=== PATIENT | male | born 1925 | race Caucasian/White ===

== ENCOUNTER 2016-11-24 13:58 | Outpatient (CLI) | END 2016-11-24 13:59 | disposition home or self-care (01) ==

== ENCOUNTER 2017-02-15 07:10 | Day surgery (SDC) | payer MEDICARE, OTHER ==
[2017-02-15] MEDS ORDERED: KETOROLAC 0.45% OPHTH DROPS OPTH ONE (07:36)
[2017-02-15] MEDS ORDERED: TROPICAMIDE 1% OPHTH 2 ML DROPS OPTH ONE (07:36)
[2017-02-15] MEDS ORDERED: CYCLOPENTOLATE 1% OPHTH DROPS 2 ML OPTH ONE (07:36)
[2017-02-15] MEDS ORDERED: LACTATED RINGERS 500 ML IV ONE (07:36)
[2017-02-15] MEDS ORDERED: MIDAZOLAM 2 MG/2 ML VIAL IVP ONE (08:50)
[2017-02-15] MEDS ORDERED: PROPARACAINE 0.5% OPHTH DROPS 15 ML OPTH ONE (09:03)
[2017-02-15] MEDS ORDERED: CHONDR SULF/HYALURONATE SYRINGE IO ONE (09:04)
[2017-02-15] MEDS ORDERED: TETRACAINE 0.5% OPHTH DROPS 4 ML OPTH ONE (09:04)
[2017-02-15] MEDS ORDERED: BSS/LIDOCAINE/EPINEPHRINE 1 ML SYRINGE IO ONE (09:04)
[2017-02-15] MEDS ORDERED: EPINEPHrine 1 MG/ML AMP IO ONE (09:04)
[2017-02-15] MEDS ORDERED: levoFLOXacin 0.5% OPHTH DROPS 5 ML OPTH ONE (09:04)
[2017-02-15] MEDS ORDERED: BRIMONIDINE 0.2% OPHTH DROPS 5 ML OPTH ONE (09:04)
== END 2017-02-15 07:11 | disposition home or self-care (01) ==
PROC: 08RJ3JZ Replacement of Right Lens with Synthetic Substitute, Percutaneous Approach (ICD-10-PCS; principal; 2017-02-15 08:30)
DX: H25.11 Age-related nuclear cataract, right eye (principal); I10 Essential (primary) hypertension; I25.10 Atherosclerotic heart disease of native coronary artery without angina pectoris; Z95.1 Presence of aortocoronary bypass graft; I25.2 Old myocardial infarction
CPT/HCPCS: 66984; V2632; V2787

== ENCOUNTER 2017-03-01 07:00 | Day surgery (SDC) | payer MEDICARE, OTHER ==
[2017-03-01] MEDS ORDERED: LACTATED RINGERS 500 ML IV ONE (07:03)
[2017-03-01] MEDS ORDERED: KETOROLAC 0.45% OPHTH DROPS OPTH ONE (07:17)
[2017-03-01] MEDS ORDERED: PHENYLEPHRINE 2.5% OPHTH 2 ML DROPS OPTH ONE (07:17)
[2017-03-01] MEDS ORDERED: CYCLOPENTOLATE 1% OPHTH DROPS 2 ML OPTH ONE (07:17)
[2017-03-01] MEDS ORDERED: MIDAZOLAM 2 MG/2 ML VIAL IVP ONE (08:10)
[2017-03-01] MEDS ORDERED: BRIMONIDINE 0.2% OPHTH DROPS 5 ML OPTH ONE (08:30)
[2017-03-01] MEDS ORDERED: EPINEPHrine 1 MG/ML AMP IO ONE (08:30)
[2017-03-01] MEDS ORDERED: CHONDR SULF/HYALURONATE SYRINGE IO ONE ×2 (08:30)
[2017-03-01] MEDS ORDERED: NEOMYCIN/POLYMYX/DEXAMETH OPHTH OINT OPTH ONE (08:30)
[2017-03-01] MEDS ORDERED: PROPARACAINE 0.5% OPHTH DROPS 15 ML OPTH ONE (08:30)
[2017-03-01] MEDS ORDERED: levoFLOXacin 0.5% OPHTH DROPS 5 ML OPTH ONE (08:30)
[2017-03-01] MEDS ORDERED: BSS/LIDOCAINE/EPINEPHRINE 1 ML SYRINGE IO ONE ×3 (08:37)
== END 2017-03-01 07:01 | disposition home or self-care (01) ==
PROC: 08B53ZZ Excision of Left Vitreous, Percutaneous Approach (ICD-10-PCS; 2017-03-01)
PROC: 085K3ZZ Destruction of Left Lens, Percutaneous Approach (ICD-10-PCS; principal; 2017-03-01 08:30)
DX: H25.12 Age-related nuclear cataract, left eye (principal); H21.81 Floppy iris syndrome; H59.212 Accidental puncture and laceration of left eye and adnexa during an ophthalmic procedure; I25.2 Old myocardial infarction; I25.10 Atherosclerotic heart disease of native coronary artery without angina pectoris; I10 Essential (primary) hypertension; E78.5 Hyperlipidemia, unspecified; Z87.891 Personal history of nicotine dependence; Z95.1 Presence of aortocoronary bypass graft; Z79.82 Long term (current) use of aspirin
CPT/HCPCS: 66850; 67005; A9270